=== PATIENT | male | born 1990 | race Caucasian/White ===

== ENCOUNTER 2017-10-02 09:02 | Emergency (ER) | payer MEDICAID ==
[~2017-10-02] VITALS: Ht 175.3 cm; Wt 68.0 kg
[2017-10-02] MEDS ORDERED: LEVETIRACETAM500 MG ORAL (09:21)
[2017-10-02] MEDS ORDERED: SEROQUEL50 MG ORAL (09:21)
[2017-10-02] MEDS ORDERED: REMERON30 MG ORAL ×2 (09:21→09:51)
--- NOTE | 2017-10-02 09:44 | Emergency Room Report ---
History of Present Illness General Chief Complaint: Medication Refill Source: Patient Present Illness HPI Patient presents with running out of this medication. He's been taking his psych meds differently than they were prescribed. This is because he's had difficulty having followup and gets too tired when taking Seroquel TID. He feels anxiety but has been improved recently. He occasionally has suicidal thoughts but feels strongly he will not act out on these. The patient is working. He's had problems with his appetite - Remeron helps this. The Seroquel makes him too drowsy into his been taking only night. His last seizure was in 2013. Last drank Tuesday - not like it. No other somatic complaints. Allergies: Coded Allergies: MORPHINE (Verified Allergy, Unknown, 10/02/17) Patient History Past Medical History: see triage record, seizures, psych hx Social History: Reports: smoking, alcohol use Social History Narrative electrician assistant Reviewed Nursing Documentation: PMH: Agreed, PSxH: Agreed Review of Systems All Other Systems: negative except mentioned in HPI Physical Exam Vital Signs Date Time Temp Pulse Resp B/P (MAP) Pulse Ox O2 Delivery O2 Flow Rate FiO2 10/02/17 09:15 97.9 69 20 139/87 93 Room Air Sp02 EP Interpretation: reviewed, abnormal - interpreted as low by me General Appearance: well appearing, no apparent distress, GCS 15 Head: normocephalic, atraumatic Eyes: bilateral eye normal inspection, bilateral eye PERRL, bilateral eye EOMI ENT: hearing grossly normal, normal voice, moist mucus membranes Neck: full range of motion, supple Respiratory: no respiratory distress, speaking full sentences Cardiovascular #1: regular rate, rhythm Cardiovascular #2: 2+ radial (R) Gastrointestinal: normal inspection, normal bowel sounds, non tender, soft, scaphoid Musculoskeletal: back normal, digits/nails normal, gait/station normal, normal range of motion, no calf tenderness Neurologic: alert, oriented x3, motor strength/tone normal, DTRs symmetric, sensory intact, cerebellar normal, normal gait, speech normal Psychiatric: no suicidal/homicidal ideation, other - slightly flat affect Skin: no rash, other - tattoos Medical Decision Making Diagnostic Impression: Primary Impression: Schizoaffective disorder Qualified Codes: F25.1 - Schizoaffective disorder, depressive type ER Course Patient presents with request for med refill. He is not suicidal. He has adjusted his medications to allow himself to continue working and to improve his appetite. No somatic complaints or need for lab analysis. He is comfortable asking for help if needed. Rx and referrals given. Patient stable for outpatient observation and treatment. Last Vital Signs Date Time Temp Pulse Resp B/P (MAP) Pulse Ox O2 Delivery O2 Flow Rate FiO2 10/02/17 09:57 98.0 73 17 135/85 95 Room Air Status: improved Disposition: HOME, SELF-CARE Condition: Improved Scripts Levetiracetam (Keppra) 250 Mg Tablet 500 MG ORAL EVERY 12 HOURS, #60 TAB 0 Refills Prov: Fredi Torres M.D. 10/02/17 Mirtazapine* (REMERON*) 30 Mg Tablet 30 MG ORAL BEDTIME, #14 TAB Prov: Fredi Torres M.D. 10/02/17 Quetiapine Fumarate* (SEROQUEL*) 100 Mg Tablet 100 MG ORAL QHS, #14 TAB Prov: Fredi Torres M.D. 10/02/17 Fredi Torres M.D. Oct 02, 2017 09:44
[2017-10-02] MEDS ORDERED: KEPPRA500 MG ORAL (09:51)
[2017-10-02] MEDS ORDERED: SEROQUEL100 MG ORAL (09:51)
[2017-10-02 09:57] VITALS: BP 135/85
== END 2017-10-02 10:05 | disposition home or self-care (01) ==
LOC: EMR 09:50
DX: F25.9 Schizoaffective disorder, unspecified (principal); Z76.0 Encounter for issue of repeat prescription; F17.200 Nicotine dependence, unspecified, uncomplicated
CPT/HCPCS: 80299; 99284